=== PATIENT | male | born 1985 | race Asian ===

== ENCOUNTER 2016-07-12 10:39 | Emergency (ER) | payer BC ==
[~2016-07-12] VITALS: Ht 185.4 cm; Wt 145.1 kg
[2016-07-12 10:40] VITALS: BP 159/96; PULSE 83; RESP 19; TEMP 97.1; O2SAT 97
[2016-07-12 11:51] VITALS: BP 113/76; PULSE 83; RESP 16; TEMP 98.4; O2SAT 97
== END 2016-07-12 11:51 | disposition home or self-care (01) ==
LOC: SED 10:39
DX: R07.89 Other chest pain (principal)
CPT/HCPCS: 71010; 93005; 99284